=== PATIENT | female | born 1990 | race Two or more races ===

== ENCOUNTER 2019-04-12 10:25 | Observation (INO) | payer MEDICAID, OTHER | END 2019-04-12 12:37 | disposition home or self-care (01) | DRG 566 | LOC: LDRP 10:25 | PROVIDERS: ADMIT Specialist; ATTEND Specialist | DX: O48.0 Post-term pregnancy (principal); Z3A.40 40 weeks gestation of pregnancy | CPT/HCPCS: 59025; 76818; 81002; G0378 ==

== ENCOUNTER 2019-04-14 10:20 | Observation (INO) | payer MEDICAID ==
[2019-04-14] MEDS ORDERED: PREN-153 PO (11:13)
== END 2019-04-14 12:00 | disposition home or self-care (01) | DRG 566 ==
LOC: LDRP 10:20
PROVIDERS: ADMIT Specialist; ATTEND Specialist
DX: O48.0 Post-term pregnancy (principal); Z3A.40 40 weeks gestation of pregnancy
CPT/HCPCS: 59025; 76818; 81002; G0378

== ENCOUNTER 2019-04-16 11:28 | Observation (INO) | payer MEDICAID ==
[~2019-04-16 11:28] MED LIST: PREN-153 PO
== END 2019-04-16 13:14 | disposition home or self-care (01) | DRG 566 ==
LOC: LDRP 11:28
PROVIDERS: ADMIT Obstetrics & Gynecology; ATTEND Obstetrics & Gynecology
DX: O48.0 Post-term pregnancy (principal); O26.813 Pregnancy related exhaustion and fatigue, third trimester; M54.9 Dorsalgia, unspecified; O26.893 Other specified pregnancy related conditions, third trimester; Z3A.41 41 weeks gestation of pregnancy
CPT/HCPCS: 59025; 76818; 81002; G0378